=== PATIENT | male | born 1985 | race Two or more races ===

== ENCOUNTER 2018-04-23 04:43 | Emergency (ER) | payer OTHER, SELFPAY ==
[~2018-04-23] VITALS: Ht 157.5 cm; Wt 75.4 kg
[2018-04-23 04:45] VITALS: BP 128/77
[2018-04-23] MEDS ORDERED: DEXAMETHASONE 4 MG TABLET ONE (05:27)
[2018-04-23] MEDS ORDERED: DEXAMETHASONE 4 MG TABLET PO ONE (05:30)
[2018-04-23] MEDS ORDERED: HYDROcodone/APAP 7.5-325MG/15ML UDC PO ONE (05:30)
[2018-04-23] MEDS ORDERED: HYDROcodone/APAP 7.5-325MG/15ML UDC ONE (05:34)
== END 2018-04-23 05:47 | disposition home or self-care (01) ==
LOC: ED 05:40
DX: J03.00 Acute streptococcal tonsillitis, unspecified (principal); F17.210 Nicotine dependence, cigarettes, uncomplicated
CPT/HCPCS: 99283

== ENCOUNTER 2018-06-24 12:52 | Emergency (ER) | payer SELFPAY ==
[~2018-06-24] VITALS: Ht 157.5 cm; Wt 74.0 kg
[2018-06-24 12:55] VITALS: BP 128/82
[2018-06-24] MEDS ORDERED: KETOROLAC 30 MG/1 ML ONE (13:44)
[2018-06-24] MEDS ORDERED: KETOROLAC 30 MG/1 ML IM ONE (14:00)
[2018-06-24 14:05] LABS: MICROSCOPIC NOT IND
[2018-06-24 14:10] LABS: CULTURE INDICATED? NO
== END 2018-06-24 14:34 | disposition home or self-care (01) ==
LOC: ED 14:28
DX: L05.91 Pilonidal cyst without abscess (principal)
CPT/HCPCS: 76870; 81003; 96372; 99285; J1885